=== PATIENT | male | born 1955 | race Caucasian/White ===

== ENCOUNTER 2021-03-12 07:39 | Emergency (ER) | payer MEDICARE | END 2021-03-12 09:12 | disposition home or self-care (01) | LOC: ER1 07:39 | DX: S82.832A Other fracture of upper and lower end of left fibula, initial encounter for closed fracture (principal); W22.8XXA Striking against or struck by other objects, initial encounter; Y92.009 Unspecified place in unspecified non-institutional (private) residence as the place of occurrence of the external cause | CPT/HCPCS: 29515; 73600; 73630; 99283 ==